=== PATIENT | male | born 1995 | race African-American/Black ===

== ENCOUNTER 2020-12-07 20:59 | Emergency (ER) | payer OTHER ==
[2020-12-07] MEDS ORDERED: Ibuprofen 200 MG TAB ONE (21:46)
[2020-12-07] MEDS ORDERED: Acetaminophen 325 MG TAB ONE (21:46)
== END 2020-12-07 22:55 ==
LOC: NAV ERS 20:59
DX: S93.402A Sprain of unspecified ligament of left ankle, initial encounter (principal); X50.1XXA Overexertion from prolonged static or awkward postures, initial encounter